=== PATIENT | female | born 1995 | race Caucasian/White ===

== ENCOUNTER 2022-04-09 21:42 | Emergency (ER) | payer OTHER ==
[~2022-04-09] VITALS: Ht 170.2 cm; Wt 92.4 kg
[2022-04-09] MEDS ORDERED: LIDOcaine 1% W/epiNEPHrine 1:100,000 20ml vial SQ ONE (23:10)
[2022-04-10 00:30] VITALS: BP 127/68
== END 2022-04-10 00:31 | disposition home or self-care (01) ==
LOC: ER 21:43
DX: L02.416 Cutaneous abscess of left lower limb (principal)
CPT/HCPCS: 10060; 99282; J7030

== ENCOUNTER 2023-01-03 10:48 | Day surgery (SDC) | payer OTHER ==
[2022-12-31 16:53] LABS: PREOP HCG, QL SERUM NEGATIVE (NEGATIVE)
[2022-12-31 16:57] LABS: ALBUMIN/GLOBULIN RATIO 1.1 (1.1-1.5); ALKALINE PHOSPHATASE 66 IU/L (46-116); BASOPHILS # (AUTO) 0.1 X10'3 (0-0.2); BASOPHILS % (AUTO) 0.5 % (0-1); BLOOD UREA NITROGEN 18 MG/DL (7-18); BUN/CREATININE RATIO 19.4 (10.0-20.0); CALCIUM 9.2 MG/DL (8.5-10.1); CHLORIDE 103 MMOL/L (99-107); CREATININE 0.93 MG/DL (0.40-0.90); EOSINOPHILS # (AUTO) 0.1 X10'3 (0-0.9); LYMPHOCYTES # (AUTO) 3.7 X10'3 (1.1-4.8); LYMPHOCYTES % (AUTO) 38.2 % (21-51); MEAN CORPUSCULAR HGB CONC 33.7 g/dL (33.0-36.5); MEAN CORPUSCULAR VOLUME 89.1 FL (78-98); MEAN PLATELET VOLUME 7.7 FL (7.4-10.4); NEUTROPHILS # (AUTO) 4.9 X10'3 (1.8-7.7); NEUTROPHILS % (AUTO) 50.3 % (42-75); PRE OP ALT 30 U/L (30-65); PRE OP ANION GAP 9 (8-16); PRE OP AST 12 U/L (10-37); PRE OP BILIRUB, TOTAL 0.2 MG/DL (0.0-1.0); PRE OP GLUCOSE 97 MG/DL (70-104); PRE OP HEMATOCRIT 44.2 % (35.0-45.0); PRE OP HEMOGLOBIN 14.9 g/dL (12.0-16.0); PRE OP PLATELET COUNT 346 X10'3 (140-440); PRE OP SODIUM 139 MMOL/L (135-145); RED BLOOD COUNT 4.96 X10'6 (4.20-5.60); RED CELL DISTRIBUTION WIDTH 13.6 % (11.5-14.5); TOTAL CARBON DIOXIDE 27.2 MMOL/L (24-32); TOTAL PROTEIN 7.5 G/DL (6.4-8.2); eGFR 73 ML/MIN
[2022-12-31 17:04] LABS: PRE OP POTASSIUM 3.3 MMOL/L (3.4-5.1)
[2023-01-03] VITALS (9 sets, daily range): BP systolic 116–147; BP diastolic 55–94
[~2023-01-03] VITALS: Ht 165.1 cm; Wt 88.5 kg
[~2023-01-03 10:48] MED LIST: COLLAGEN PO; ERGO400C PO; GABA PO; MAGN400C PO; OMEG1CAP46 PO; cefazolin 2gm/D5W 100mL 100 ML IV ONE; famotidine 20mg tablet PO ONE; ringers solution, lacted 1,000 ML IV SCH
[2023-01-03] MEDS ORDERED: polyvinyl alcohol ophthalmic drops 15ml bottle ONE (12:01)
[2023-01-03] MEDS ORDERED: cocaine 4% topical solution 4ml bottle ONE (12:01)
[2023-01-03] MEDS ORDERED: LIDOcaine 1% W/epiNEPHrine 1:100,000 20ml vial ONE ×2 (12:01)
[2023-01-03] MEDS ORDERED: bacitracin 15gm ointment TP ONE (12:01)
[2023-01-03] MEDS ORDERED: morphine 2 MG/ML inj. syringe IV PRN (12:15)
[2023-01-03] MEDS ORDERED: proCHLORperazine 10 MG/2 ml inj IV PRN (12:15)
[2023-01-03] MEDS ORDERED: morphine 4 MG/ML inj SYRINge IV PRN (12:15)
[2023-01-03] MEDS ORDERED: ondansetron/PF 4mg/2ml inj IV PRN (12:15)
[2023-01-03] MEDS ORDERED: labetalol 20mg/4ml (5mg/ml) syringe IV PRN (12:15)
[2023-01-03] MEDS ORDERED: meperidine/PF 25mg/ml syringe IV PRN ×3 (12:15)
[2023-01-03] MEDS ORDERED: acetaminophen 1,000mg/100ml IV 100 ML IV PRN (12:15)
[2023-01-03] MEDS ORDERED: hydrALAZINE 20mg/ml inj. IV PRN (12:15)
[2023-01-03] MEDS ORDERED: ringers solution, lacted 1,000 ML IV SCH (12:15)
[2023-01-03] MEDS ORDERED: sevoflurane 250ml liquid IH ONE (12:18)
[2023-01-03] MEDS ORDERED: midazolam 1 mg/ML 2ml injection ONE (12:22)
[2023-01-03] MEDS ORDERED: fentaNYL /PF 50mcg/ml 5ml ampule ONE (12:22)
[2023-01-03] MEDS ORDERED: dexamethasone sod phosphate 4mg/ml inj. ONE (12:41)
[2023-01-03] MEDS ORDERED: rocuronium 10mg/ml inj IV ONE (12:41)
[2023-01-03] MEDS ORDERED: propofol inj 20 ML IV ONE (12:41)
[2023-01-03] MEDS ORDERED: ondansetron/PF 4mg/2ml inj ONE (12:41)
[2023-01-03] MEDS ORDERED: LIDOcaine 1%/PF 5ML 10 MG/ML VIAL ONE ×2 (12:41)
[2023-01-03] MEDS ORDERED: neostigmine methylsulfate 1 MG/ML 10ml vial ONE (13:15)
[2023-01-03] MEDS ORDERED: glycopyrrolate 0.2mg/ml inj ONE (13:15)
--- NOTE | 2023-01-03 13:27 | NUR ---
Received from OR via [facility], accompanied by Anesthesiologist and report given by ODALYS Anesthesiologist. PATIENT WAKING UP, DENIES PAIN, V/S WNL, 20G TO RIGHT HAND, POSTERIOR NASAL DRESSING C/D/I. Addendum: 01/03/23 at 1413 by Christopher Fontaine RN Amended: Links added.
--- NOTE | 2023-01-03 14:27 | NUR ---
PATIENT UP AND DRESSED, VSS, DENIES ANY PAIN, DISCUSSED HOME CARE FOR NASAL IRRIGATION AND MEDICATIONS, FRESH GAUZE PLACE UNDER NOSE, WITH MOUTACHE DRESSING. PT TAKEN WITH SUPPLIES (GAUZE) AND BELONGINGS TO VEHICLE. ALL DISCHARGE CRITERIA HAS BEEN MET. VSS, PAIN AT A TOLERABLE LEVEL, ABLE TO SAFELY AMBULATE AND TRANSFER SELF. IV TAKEN OUT WITHOUT ANY COMPLICATIONS. ALL DISCHARGE INSTRUCTIONS COVERED WITH PATIENT AND ALL QUESTIONS ANSWERED. PATIENT TAKEN OUT VIA WHEELCHAIR WITH ALL BELONGINGS TO PERSONAL VEHICLE WHERE FAMILY DROVE PATIENT HOME. Addendum: 01/03/23 at 1449 by Christopher Fontaine RN Amended: Links added.
== END 2023-01-03 14:27 | disposition home or self-care (01) ==
LOC: PAS 10:48
PROVIDERS: ATTEND Specialist
DX: J34.2 Deviated nasal septum (principal); J34.3 Hypertrophy of nasal turbinates; Z98.818 Other dental procedure status; Z88.0 Allergy status to penicillin; Z72.89 Other problems related to lifestyle; Z79.899 Other long term (current) drug therapy
CPT/HCPCS: 30140; 30520; 36415; 80053; 82948; 84703; 85025; 93005; J0690; J1100; J2250; J2405; J2704; J2710; J3010; J3490; J7030; J7120; Z7506; Z7508; Z7512; A4215; A4618; A6449; A7000